=== PATIENT | male | born 1995 | race Caucasian/White ===

== ENCOUNTER 2025-03-21 23:38 | Emergency (ER) | payer BC, SELFPAY ==
[~2025-03-21] VITALS: Ht 180.3 cm; Wt 91.0 kg
[2025-03-22 04:18] LABS: BASO # 0.0 10^3/uL (0.0-0.2); BASO % 0.4 % (0.0-1.0); EOS # 0.0 10^3/uL (0.0-0.5); EOS % 0.3 % (0.0-3.0); LYMPH # 1.3 10^3/uL (1.5-5.0); LYMPH % 17.9 % (24.0-44.0); MONO # 0.5 10^3/uL (0.0-0.8); MONO % 6.5 % (2.0-8.0); NEUTROPHILS # 5.4 10^3/uL (1.5-8.5); NEUTROPHILS % 74.5 % (36.0-66.0); PLATELET COUNT, AUTOMATED 235 10^3/uL (150-450)
[2025-03-22] MEDS: BOOSTRIX VACCINE (TETANUS/DIPHTH/ACEL. PERTUSSIS) 0.5 ML SYR IM ONE (04:23)
[2025-03-22] MEDS ORDERED: ISOVUE-370 76% 100 ML VIAL As Ordered ONE (04:51)
[2025-03-22] MEDS: DERMABOND TOPICAL SKIN ADHESIVE TOP ONE ×2 (07:25→09:15)
[2025-03-22] MEDS: LIDOCAINE 2% W/EPINEPHrine 20 ML VIAL **PRES FREE INJ ONE (09:23)
[2025-03-22 10:45] VITALS: BP 132/89; TEMP 97.4; O2SAT 98
== END 2025-03-22 10:54 | disposition home or self-care (01) ==
LOC: M ED 23:38
DX: S11.81XA Laceration without foreign body of other specified part of neck, initial encounter (principal); X99.1XXA Assault by knife, initial encounter; Y92.009 Unspecified place in unspecified non-institutional (private) residence as the place of occurrence of the external cause; Y93.9 Activity, unspecified; Y99.9 Unspecified external cause status
CPT/HCPCS: 12001; 70498; 80047; 85025; 90471; 90715; 99285; Q9967